=== PATIENT | female | born 1950 | race Asian ===

== ENCOUNTER 2021-12-23 17:59 | Emergency (ER) | payer OTHER ==
[~2021-12-23] VITALS: Ht 165.1 cm; Wt 47.6 kg
[2021-12-23 18:00] VITALS: BP 149/86; TEMP 97.6
[2021-12-23 18:43] LABS: PLATELET COUNT 193 K/uL (152-353)
[2021-12-23 18:57] LABS: POTASSIUM 3.6 mmol/L (3.6-5.2)
[2021-12-24] MEDS ORDERED: LIPITOR40 MG PO (08:02)
[2021-12-24] MEDS ORDERED: [UNRECOGNIZED DRUG - CODE] PO (08:04)
[2021-12-24] MEDS ORDERED: MELATONIN10 M2 PO (08:04)
[2021-12-24] MEDS ORDERED: REMERON SOLTAB15 MG PO (08:07)
[2021-12-24] MEDS ORDERED: TRAZODONE HYDRO50 MG PO (08:10)
[2021-12-24] MEDS ORDERED: VENLAFAXINE ER PO (08:12)
[2021-12-24] MEDS ORDERED: GEODON PO (08:13)
[2021-12-24] MEDS ORDERED: K-TABS10 MEQ PO (08:15)
== END 2021-12-23 20:00 | disposition still patient (30) ==
LOC: ED 17:59
PROVIDERS: Hospitalist
DX: F03.91 Unspecified dementia, unspecified severity, with behavioral disturbance (principal); Z11.52 Encounter for screening for COVID-19; Z04.6 Encounter for general psychiatric examination, requested by authority
CPT/HCPCS: 36415; 80053; 85027; 87635; 93005; 99283; U0003